=== PATIENT | male | born 1995 | race Caucasian/White ===

== ENCOUNTER 2021-04-09 19:24 | Emergency (ER) | payer OTHER ==
[~2021-04-09] VITALS: Ht 180.3 cm; Wt 83.9 kg
[2021-04-09 22:59] VITALS: BP 124/76
== END 2021-04-09 23:01 | disposition home or self-care (01) ==
LOC: ER 19:24
DX: T62.0X1A Toxic effect of ingested mushrooms, accidental (unintentional), initial encounter (principal); R41.82 Altered mental status, unspecified; F17.210 Nicotine dependence, cigarettes, uncomplicated; Y92.89 Other specified places as the place of occurrence of the external cause